=== PATIENT | male | born 1955 | race Two or more races ===

== ENCOUNTER → 2018-11-21 | Outpatient (CLI) | payer OTHER | END | disposition home or self-care (01) | LOC: NUCLEAR 07:18 | DX: I20.9 Angina pectoris, unspecified (principal) | CPT/HCPCS: 78452; 93017; A9500; J0153 ==

== ENCOUNTER 2021-11-14 07:29 | Outpatient (CLI) | payer OTHER | END 2021-11-14 07:30 | disposition home or self-care (01) | LOC: NUCLEAR 07:29 | PROVIDERS: ATTEND Internal Medicine Cardiovascular Disease | DX: I25.2 Old myocardial infarction (principal) | CPT/HCPCS: 78452; 93017; A9500; J0153 ==

== ENCOUNTER 2022-07-26 14:45 | Outpatient (CLI) | payer OTHER | END 2022-07-26 14:54 | disposition home or self-care (01) | LOC: RAD 14:45 | PROVIDERS: ATTEND Specialist | DX: J45.998 Other asthma (principal) ==

== ENCOUNTER 2024-11-04 08:42 | Outpatient (CLI) | payer OTHER | END 2024-11-04 08:46 | disposition home or self-care (01) | LOC: SONOGRAMA 08:42 | DX: R74.8 Abnormal levels of other serum enzymes (principal); R85.0 Abnormal level of enzymes in specimens from digestive organs and abdominal cavity ==